=== PATIENT | female | born 1975 | race African-American/Black ===

== ENCOUNTER → 2017-03-28 | Outpatient (CLI) | payer BC, OTHER ==
[~2017-03-28] MED LIST: GADOBUTROL 10 MMOL/10 ML VIAL IV ONE
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
== END | disposition home or self-care (01) ==
LOC: MRI 10:38
PROVIDERS: ATTEND General Practice
DX: S06.0X9A Concussion with loss of consciousness of unspecified duration, initial encounter (principal); G43.909 Migraine, unspecified, not intractable, without status migrainosus; I73.9 Peripheral vascular disease, unspecified; Z87.828 Personal history of other (healed) physical injury and trauma; X58.XXXA Exposure to other specified factors, initial encounter; Y93.9 Activity, unspecified; Y92.9 Unspecified place or not applicable; Y99.9 Unspecified external cause status
CPT/HCPCS: 70551

== ENCOUNTER → 2018-07-09 | Outpatient (CLI) | payer BC ==
[2018-07-09 15:05] LABS: BASO % 0 % (0-3); EOS # 0.2 x10^3/uL (0.0-0.7); EOS % 2 % (0-3); HEMATOCRIT 36.9 % (36.0-47.0); HEMOGLOBIN 12.5 g/dL (12.0-15.5); LYMPH # 2.4 x10^3/uL (1.0-4.8); LYMPH % 24 % (24-48); MEAN CORPUSCULAR HEMOGLOBIN 30 pg (25-35); MEAN CORPUSCULAR HGB CONC 34 g/dL (31-37); MEAN CORPUSCULAR VOLUME 88 fL (79-100); MONO # 0.8 x10^3/uL (0.0-1.1); MONO % 8 % (0-9); NEUT # 6.6 x10^3uL (1.8-7.7); NEUT % 65 % (31-73); PLATELET COUNT 180 x10^3/uL (140-400); RED BLOOD COUNT 4.19 x10^6/uL (3.50-5.40); RED CELL DISTRIBUTION WIDTH 13.5 % (11.5-14.5); WHITE BLOOD COUNT 10.2 x10^3/uL (4.0-11.0)
[2018-07-09 15:14] LABS: PROTHROMBIN TIME PATIENT 11.9 SEC (11.7-14.0)
[2018-07-09 15:15] LABS: BARBITURATES NEG (NEG); BENZODIAZEPINES NEG (NEG); CANNABINOIDS NEG (NEG); COCAINE NEG (NEG); METHADONE NEG (NEG); OPIATES NEG (NEG); PHENCYCLIDINE NEG (NEG)
[2018-07-09 15:16] LABS: AMPHETAMINE/METHAMPHETAMINE NEG (NEG)
[2018-07-09 15:34] LABS: ALBUMIN 3.5 g/dL (3.4-5.0); ALBUMIN/GLOBULIN RATIO 0.8 (1.0-1.7); CALCIUM 8.6 mg/dL (8.5-10.1); CREATININE 0.9 mg/dL (0.6-1.0); GFR 83.5; POTASSIUM 3.6 mmol/L (3.5-5.1); TOTAL BILIRUBIN 0.2 mg/dL (0.2-1.0); TOTAL PROTEIN 7.7 g/dL (6.4-8.2)
== END | disposition home or self-care (01) ==
LOC: LAB 14:39
PROVIDERS: ATTEND Psychiatry & Neurology Neurology
DX: R51 Headache (principal); Z87.828 Personal history of other (healed) physical injury and trauma
CPT/HCPCS: 36415; 80053; 80307; 85025; 85610; 85651; G0479

== ENCOUNTER → 2018-07-14 | Outpatient (CLI) | payer BC ==
[~2018-07-14] MED LIST changes: -GADOBUTROL 10 MMOL/10 ML VIAL IV ONE; +GADOBUTROL 7.5 MMOL/7.5 ML VIAL IV ONE
--- NOTE | 2018-07-14 10:06 | RAD ---
MRI Brain with and without contrast History: Worsening chronic headaches Technique: Multiplanar, multi sequential pre and postcontrast MR imaging was performed of the brain. Contrast: 12 cc Gadavist Comparison: March 28, 2017 Findings: There is mild motion. There is no evidence of recent infarct or cytotoxic edema. The ventricles, sulci, and cisterns are within normal limits in size and configuration. There is no significant midline shift, intraaxial mass effect, or focal abnormal extra-axial fluid collection. There are again a few tiny foci of T2 and FLAIR hyperintense signal of the supratentorial white matter greatest of the left parietal lobe overall unchanged. There is no nodular parenchymal or leptomeningeal enhancement. There is preservation of the major intracranial flow-voids at the skull base. The cerebellar tonsils are normal in location. There is no significant abnormality of the pineal gland. There is negligible patchy ethmoid air cell and anterior sphenoid sinus mucosal thickening, also tiny right maxillary sinus mucous retention cyst 0.6 cm. Frontal sinus is not significantly pneumatized. There is slightly disconjugate gaze. There is nonspecific mild increased CSF signal of the optic nerve sheaths. There is again slightly convex superior margin of the pituitary gland more centrally although unchanged, overall size pituitary gland not considered significantly enlarged. There is very minimal thickening of the right mastoid air cells and small focus of fluid on the left. There is similar nonspecific mild heterogeneity of the marrow signal of the clivus. Impression: 1. Intracranial findings are stable. There is again very minimal T2 and FLAIR hypertense signal of the supratentorial parenchyma. White matter changes can be seen in patients with migraine headaches if corresponding history. 2. There is stable convex margin of the central pituitary gland although not considered significantly enlarged. Electronically signed by: Sheldon Monsivais MD (07/14/2018 10:03 AM) [id number]
== END | disposition home or self-care (01) ==
LOC: MRI 08:28
PROVIDERS: ATTEND Psychiatry & Neurology Neurology
DX: G93.2 Benign intracranial hypertension (principal); G43.909 Migraine, unspecified, not intractable, without status migrainosus; Z87.828 Personal history of other (healed) physical injury and trauma
CPT/HCPCS: 70553; A9585

== ENCOUNTER 2018-08-10 09:11 | Outpatient (CLI) | payer BC ==
[~2018-08-10 09:11] MED LIST changes: -GADOBUTROL 7.5 MMOL/7.5 ML VIAL IV ONE; +LIDOCAINE WITH 8.4% SOD BICARB 3 ML DISP.SYRIN. INJ ONE
[2018-08-10 11:47] VITALS: BP 113/76
[2018-08-10 12:10] LABS: CSF CLARITY HAZY; CSF COLOR RED; CSF WBC COUNT 2
[2018-08-10 12:11] LABS: CSF MON % 70 %; CSF PMN % 30 %; CSF RBC COUNT 1750
[2018-08-10 13:15] VITALS: BP 115/65
[2018-08-10] MEDS ORDERED: HYDROcodone/APAP 5/325MG 1 TAB TABLET PO ONE (13:15)
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
[2018-08-12 21:10] LABS: HERPES SIMPLEX TYPE 1 Negative (Negative); HERPES SIMPLEX TYPE 2 Negative (Negative)
== END 2018-08-10 14:03 | disposition home or self-care (01) ==
LOC: RAD 09:11
PROVIDERS: ATTEND Psychiatry & Neurology Neurology
DX: G93.2 Benign intracranial hypertension (principal); J45.909 Unspecified asthma, uncomplicated; Z90.710 Acquired absence of both cervix and uterus; I10 Essential (primary) hypertension; Z91.018 Allergy to other foods; Z79.899 Other long term (current) drug therapy
CPT/HCPCS: 62270; 77003; 82945; 84157; 87071; 87075; 87102; 87252; 87529; 89051

== ENCOUNTER → 2018-11-23 | Outpatient (CLI) | payer BC ==
[~2018-11-23] MED LIST changes: +GADOBUTROL 7.5 MMOL/7.5 ML VIAL IV ONE; -LIDOCAINE WITH 8.4% SOD BICARB 3 ML DISP.SYRIN. INJ ONE; +METO-239 PO
--- NOTE | 2018-11-23 09:32 | KCIC ---
Ultrasound pelvis 11/23/2018 CLINICAL INDICATION: Left adnexal mass. COMPARISON: CT abdomen and pelvis 10/28/2018 FINDINGS: Transabdominal images were performed. Uterus is absent consistent with hysterectomy. The vaginal cuff is unremarkable. Left ovary measures 4.0 x 2.3 x 3.7 cm. Interval decrease in simple appearing left ovarian cyst without evidence of internal nodularity, blood flow or thick septations measuring 2.2 x 2.2 x 2.1 cm. Normal color Doppler imaging of the left ovary. Right ovary measures 2.1 x 1.5 x 3.0 cm with normal color Doppler imaging. No significant pelvic free fluid, though limited due to body habitus. IMPRESSION: 1. Interval decrease in simple appearing left ovarian cyst. 2. Hysterectomy. Electronically signed by: Pan Castellanos MD (11/23/2018 9:27 AM) [facility]
--- NOTE | 2018-11-23 10:36 | [facility] ---
MRI abdomen without with contrast 11/23/2017 CLINICAL INDICATION: Left renal lesion. Left flank pain with dysuria. COMPARISON: CT abdomen pelvis without contrast 10/28/2018 TECHNIQUE: Multisequence, multiplanar MR imaging of the abdomen was performed without and following the intravenous administration of 11 mL Gadavist gadolinium-based contrast material. FINDINGS: Renal protocol was utilized limiting evaluation of the other abdominal viscera. Liver: The visualized portions of the liver, excluding the dome, are unremarkable. Biliary system: No biliary ductal dilatation. Gallbladder normal in size and configuration. Spleen: Normal in size. Adrenal glands: Unremarkable. Kidneys: Both kidneys present without hydronephrosis. There is a superior pole of the left kidney measuring 0.6 cm. Additional simple cysts in the interpolar left kidney measuring 0.4 cm and inferior pole the left kidney measuring 0.3 cm. No suspicious enhancing renal mass. Aorta and major vasculature: Abdominal aorta normal in caliber. Major portal veins are patent. Lymph nodes: No abdominal lymphadenopathy. Pancreas: Unremarkable. Bowel and peritoneum: Visualized small and large bowel loops are normal in caliber. No abdominal free fluid. Other: Interval decrease in size of single cyst with thin internal septation or 2 adjacent cysts in the left adnexa. IMPRESSION: 1. Three small left renal cysts, one of which corresponds to the CT finding. 2. Interval decrease in left adnexal single cyst with thin internal septation versus 2 adjacent cysts. Electronically signed by: Pan Castellanos MD (11/23/2018 10:31 AM) [facility]
== END | disposition home or self-care (01) ==
LOC: KCIC US 07:42
PROVIDERS: ATTEND General Practice
DX: N28.1 Cyst of kidney, acquired (principal); N83.8 Other noninflammatory disorders of ovary, fallopian tube and broad ligament; I10 Essential (primary) hypertension; J45.909 Unspecified asthma, uncomplicated
CPT/HCPCS: 74183; 76856; A9585